=== PATIENT | male | born 1955 | race African-American/Black ===

== ENCOUNTER 2019-02-25 01:41 | Inpatient (IN) | payer OTHER, MEDICAID ==
[~2019-02-25] VITALS: Ht 167.6 cm; Wt 61.2 kg
[2019-02-25] MEDS ORDERED: NITROGLYCERIN0.4 MG SL (02:21)
[2019-02-25] MEDS ORDERED: BRILINTA90 M1 PO (02:23)
[2019-02-25] MEDS ORDERED: LIPITOR80 MG PO (02:28)
[2019-02-25] MEDS ORDERED: CARVEDILOL6.25 MG PO (02:29)
[2019-02-25] MEDS ORDERED: ASPIRIN CHEWABL81 MG PO (02:29)
[2019-02-25] MEDS ORDERED: LEXAPRO10 MG PO (02:30)
[2019-02-25] MEDS ORDERED: REMERON15 M2 PO (02:30)
[2019-02-25 04:00] VITALS: BP 160/90
--- NOTE | 2019-02-25 04:12 | NUR ---
DR ISLAS NOTIFIED OF ADMISSION
--- NOTE | 2019-02-25 04:55 | NUR ---
DR ISLAS ON UNIT TO SEE PT FOR MEDICAL CONSULT
[2019-02-25 04:57] VITALS: BP 160/90
--- NOTE | 2019-02-25 05:12 | NUR ---
BARBARA KAUFMAN a 64 year old M admitted via ambulatory from [facility] as a voluntary admission. Arrived on unit at 0320. ALLERGIES: PCN. Vital signs are: 98.2-84-18 160/90. The client signed the following forms with stated understanding: Authorization For The Release of Medical Information, Clothing List, Consent to Voluntary Admission and Hospitalization, Consent and Release Forms/Receipt of Rights, Acknowledgement of Advance Directive Information, Behavioral Health Consent Form, and Informed Consent of Medications. Admitted under the services of Dr. RENETTA DICKERSON,[facility]. A search was conducted and hazardous articles were removed. Client was oriented to the unit. PT ALERT & ORIENTED X 4. ADMITS TO SUICIDAL THOUGHTS THAT COME & GO WITH NO PLAN. CONTRACTS FOR SAFETY. CO-OPERATIVE WITH ADMISSION. CATHRYN BAUMAN
[2019-02-25 06:20] LABS: BASO % 0.5 % (0.0-1.0); EOS # 0.2 10*3/uL (0.0-0.4); EOS % 2.2 % (1.0-4.0); LYMPH # 1.9 10*3/uL (1.3-4.4); LYMPH % 24.5 % (27.0-41.0); MEAN CELL VOLUME 88.5 fl (80.0-94.0); MEAN CORPUSCULAR HGB 29.5 pg (27.0-31.0); MEAN CORPUSCULAR HGB CONC 33.3 g/dl (33.0-37.0); MEAN PLATELET VOLUME 10.5 fl (9.6-12.3); MONO # 0.7 10*3/uL (0.1-1.0); MONO % 9.1 % (3.0-9.0); NEUT # 4.9 10*3/uL (2.3-7.9); NEUT % 63.4 % (47.0-73.0); PLATELET COUNT AUTOMATED 189 10*3/uL (130-400); RED BLOOD COUNT 4.07 10*6/uL (4.50-5.90); RED CELL DISTRI WIDTH 14.2 % (0-14.5); WHITE BLOOD COUNT 7.8 10*3/uL (4.8-10.8)
[2019-02-25 06:47] LABS: ALBUMIN 3.5 gm/dl (3.1-4.5); ALKALINE PHOSPHATASE 131 U/L (45-117); BUN 15 mg/dl (7-24); CHLORIDE 112 mmol/L (98-107); CHOLESTEROL 151 mg/dL (<200); POTASSIUM 3.7 mmol/L (3.5-5.1); SGOT/AST 44 IU/L (3-35); SGPT/ALT 38 U/L (12-78); SODIUM 141 mmol/L (136-145); TOTAL PROTEIN 7.4 gm/dL (6.4-8.2); TRIGLYCERIDES 119 mg/dl (<150); VLDL CHOLESTEROL 24 mg/dL (6-40)
[2019-02-25 06:53] LABS: HDL CHOLESTEROL 37 mg/dl (40-60); LDL CHOLESTEROL 90 mg/dL (9-159)
[2019-02-25 07:51] VITALS: BP 148/86
--- NOTE | 2019-02-25 08:15 | NUR ---
Treatment Plan meeting was held with Dr. Adams, RN, AT, MASTER RIGGER-S and Heating And Cooling Systems Engineer. Plan for discharge Next week. Discharge Plan unclear at this time. Pt. will require Assessment to determine Discharge Needs.
[2019-02-25 08:21] LABS: VITAMIN D, 25-HYDROXY 13.8 ng/mL (30-100)
[2019-02-25] MEDS ORDERED: TRAMADOL HCL50 MG PO (09:30)
--- NOTE | 2019-02-25 09:31 | NUR ---
MED REC REVIEWED WITH PT. PER PT HE DOES TAKE ALL MEDICATIONS REFLECTED IN THE MED REC. CALL PLACED TO PT'S HOME PHARMACY, [facility] IN [place], PER PHARMACY PT HAS NOT PICKED UP BRILINTA, LIPITOR, COREG OR LEXAPRO. STATES HE HAS PICKED UP REMERON IN SEPTEMBER AND TRAMADOL IN JANUARY. UPDATED.
--- NOTE | 2019-02-25 11:05 | NUR ---
AND ON UNIT TO SEE PT AT THIS TIME.
[2019-02-25] MEDS ORDERED: TIMOLOL MALEATE10 M1 OU (11:14)
--- NOTE | 2019-02-25 11:15 | NUR ---
MADE AWARE PER PT'S PHARMACIES PT HAS NOT HAD ANY MEDICATIONS FILLED SINCE WITH EXCEPTION OF TRAMADOL WHICH WAS FILLED IN JANUARY.
--- NOTE | 2019-02-25 11:42 | NUR ---
AM GROUP AND ASSESSMENT NO AM GROUP WAS CONDUCTED DUE TO NURSING STUDENTS BEING PRESENT. PT ASSESSMENT WAS COMPLETED AND GOALS WERE SET.
--- NOTE | 2019-02-25 15:38 | NUR ---
P- DEPRESSED MOOD, FLAT AFFECT. PT REPORTS CHRONIC PAIN WHICH CONTRIBUTES TO DEPRESSION. POOR SLEEP. PT REPORTS MEDICATION NONCOMPLIANCE WHILE AT HOME. I- ORIENTATION, MOOD AND BEHAVIOR ASSESSED. ASSESSED PT FOR SI/HI, INTENT OR PLAN. ASSESSED PT FOR S/S HALLUCINATIONS, PARANOIA AND/OR DELUSIONS. MEDICATIONS ADMINISTERED PER PHYSICIAN'S ORDERS. ASSISTANCE WITH ADL CARE PROVIDED NEEDED. ENCOURAGED PT TO ATTEND AND PARTICIPATE IN [facility] GROUPS AND ACTIVITIES. R- PT IS ALERT AND ORIENTED X4. MEMORY APPEARS TO BE INTACT. RESPS EASY AND EVEN ON ROOM AIR. MOOD APPEARS DEPRESSED WITH FLAT AFFECT. SPEECH IS WNL AND COHERENT, ABLE TO MAKE NEEDS KNOWN WITHOUT DIFFICULTY. PT REPORTS STRUGGLING WITH CHRONIC PAIN WHICH CONTRIBUTES TO DEPRESSIVE SYMPTOMS. PT REPORTS POOR SLEEP. PT UNSURE OF MEDICATIONS AND ADMITS HE HAS DIFFICULTY WITH COMPLIANCE AT HOME. MEDICATION COMPLIANT THIS AM WITHOUT DIFFICULTY WITH EXCEPTION OF FLU SHOT, PT STATES "I TOLD THEM I DIDN'T WANT THAT". PT DENIES SI/HI, INTENT OR PLAN. VERBALLY CONTRACTS FOR SAFETY. PT DENIES HALLUCINATIONS, NO RESPONSE TO INTERNAL STIMULI NOTED. NO PARANOIA OR DELUSIONS NOTED. PT IS CALM AND COOPERATIVE. INTERACTIVE WITH STAFF AND PEERS. NO DISTRESS NOTED. P- PLAN TO CONTINUE CURRENT TREATMENT, CONTINUE TO MONITOR MOOD AND BEHAVIORS, PROVIDE APPROPRIATE REORIENTATION, REDIRECTION AND 1:1 NEEDED. CONTINUE TO ENCOURAGE MEDICATION COMPLIANCE, PROVIDE MEDICATION EDUCATION AND ENCOURAGE GROUP ATTENDANCE AND PARTICIPATION.
--- NOTE | 2019-02-25 15:46 | NUR ---
PM GROUP/BINGO PT ATTENDED AFTERNOON GROUP THERAPY AND PARTICIPATED BY PLAYING SEVERAL BINGO GAMES. PT WAS LAUGHING AND JOKING AND EXHIBITED NO SIGNS OF DEPRESSION NOR EXPRESSED ANY SUICIDAL IDEATIONS
--- NOTE | 2019-02-25 17:39 | NUR ---
SHIFT CHART CHECK COMPLETED.
[2019-02-25 19:18] VITALS: BP 155/90
--- NOTE | 2019-02-25 21:01 | NUR ---
24 HR chart check completed.
--- NOTE | 2019-02-25 23:18 | NUR ---
MOOD IS PLEASANT. DENIES SUICIDAL FEELINGS & STATED, "I HAVN'T EVEN THOUGHT OF THAT TODAY". ALERT & ORIENTED X 4. COMPLIANT WITH MEDICATIONS. ATE SNACK. AMUBLATES INDEPENDENTLY. DID GO TO THE DINING ROOM & SAT NEAR THE TV & WATCHED IT. STATED ON DELMIS PORTER & STATED, "I REALLY LIKE THIS NEW MEDICINE".
--- NOTE | 2019-02-26 05:07 | NUR ---
PT HAS SLEPT QUIETLY PAST 2300
--- NOTE | 2019-02-26 07:30 | NUR ---
Occupational Therapy evaluation completed on 3 with full eval to follow. Precautions include legally blind,needs supervision and verbal assist for set up in ADLs,low complexity level 47731. Recommend no further OT and d/c to supervised setting where he can receive set up for ADls and assist with IADLs. Thank you. Heide Calvillo OTR/l
--- NOTE | 2019-02-26 07:45 | NUR ---
PHYSICAL THERAPY Attempted to see pt for eval eating breakfast will follow Mellissa Mares PT
--- NOTE | 2019-02-26 08:15 | NUR ---
DR TAYLOR ON UNIT TO ASSESS PT
--- NOTE | 2019-02-26 08:15 | NUR ---
Treatment Plan meeting was held with Dr. Adams, RN, AT, SIGNAL TOWER OPERATOR-S and Forensic Audit Expert in attendance. Plan for discharge next week. Discharge Plan remains unchanged. Call is out to Facility/[facility] where patient was staying prior to admit to the Hospital.
[2019-02-26 08:38] VITALS: BP 146/78
--- NOTE | 2019-02-26 08:47 | NUR ---
Per pt's request, phoned pt's sister Lesley and informed her that pt was admitted to the [facility]. Lesley stated that she will be unable to visit pt while in the [facility] because she lives 1 [place]/2 hrs from [place]. Provided Lesley with [facility] phone number. Phoned [facility] and left a voicemail message for Gabby requesting a return call to check status of pt returning to an apartment through this coalition.
--- NOTE | 2019-02-26 11:41 | NUR ---
AM GROUP/EXERCISE AND BRAIN GAMES PT ATTENDED MORNING GROUP THERAPY AND PARTICIPATED IN ALL ACTIVITIES. PT EXPRESSED NO SUICIDAL IDEATIONS WHILE IN GROUP. PT WAS ANIMATED AND ON TASK
--- NOTE | 2019-02-26 12:43 | NUR ---
Left another voicemail message for Gabby at [facility] requesting a return call to confirm that pt is able to return to his apartment.
--- NOTE | 2019-02-26 13:00 | NUR ---
Faxed inpatient mental health admission clinical to [facility]. Awaiting response.
--- NOTE | 2019-02-26 15:40 | NUR ---
PM GROUP/LEISURE INTERESTS PT DID NOT ATTEND AFTERNOON GROUP THERAPY. PT WAS IN BED NAPPING
--- NOTE | 2019-02-26 18:34 | NUR ---
Patient resting quietly with no c/o discomfort. Respirations easy and regular. Vital signs stable. No overt distress. GIVENS,JENNIFER
[2019-02-26 19:46] VITALS: BP 149/90
--- NOTE | 2019-02-27 05:23 | NUR ---
NO ADVERSE BEHAVIORS NOTED. PT ALERT AND ORIENTED X4. MOOD STABLE. PT CALM, COOPERATIVE AND INTERACTIVE. PT MEDICATION COMPLIANT WITHOUT DIFFICULTY AFTER REVIEW. PT DENIES SI/HI, HALLUCINATIONS, OR PAIN. NO OTHER PHYSICAL COMPLAINTS NOTED. AMBULATORY WITH STEADY GAIT, ABLE TO MAKE NEEDS KNOWN. SLEPT APPROX 7 HOURS THIS SHIFT WITH NO AWAKENINGS. NO SIGNS OR SYMPTOMS OF DISTRESS NOTED. PLAN IS TO MONITOR MOODS AND BEHAVIORS. PROVIDED 1:1 WITH THERAPEUTIC INTERVENTIONS. ENCOURAGE MEDICATION COMPLIANCE AND EDUCATE. MAINTAIN Q 15 MIN CHECKS.
[2019-02-27 08:16] VITALS: BP 138/79
--- NOTE | 2019-02-27 08:21 | NUR ---
CLAUDIA ON UNIT OT ASSESS PT
--- NOTE | 2019-02-27 08:23 | NUR ---
Patient resting quietly with no c/o discomfort. Respirations easy and regular. Vital signs stable. No overt distress. GIVENS,JENNIFER
--- NOTE | 2019-02-27 12:02 | NUR ---
AM GROUP/EXERCISE/MUSIC/GAMES PT ATTENDED AND PARTICIPATED IN ALL ACTIVITY. PT PLEASANT AND ON TASK WITH NO S.I. EXPRESSED AT THIS TIME. PT WILL CONTINUE TO ATTEND AND PARTICIPATE IN FUTURE GROUP SESSIONS.
--- NOTE | 2019-02-27 15:56 | NUR ---
PM GROUP/CRAFTS/MUSIC PT ATTENDED AND PARTICIPATED IN ALL ACTIVITY'S. PT PLEASANT AND ON TASK BUT ALSO SOCIABLE AND SINGING ALONG TO MUSIC. PT EXPRESSED NO S.I. AT THIS TIME AND WILL CONTINUE TO ATTEND AND PARTICIPATE IN FUTURE GROUP SESSIONS.
[2019-02-27 20:03] VITALS: BP 135/80
--- NOTE | 2019-02-28 02:32 | NUR ---
NO ADVERSE BEHAVIORS NOTED. PT ALERT AND ORIENTED X4. MOOD STABLE. PT CALM, COOPERATIVE AND INTERACTIVE. PT MEDICATION COMPLIANT WITHOUT DIFFICULTY AFTER REVIEW. PT DENIES SI/HI, HALLUCINATIONS, OR PAIN. NO OTHER PHYSICAL COMPLAINTS NOTED. AMBULATORY WITH STEADY GAIT, ABLE TO MAKE NEEDS KNOWN. PATIENT IS CURRENTLY LAYING DOWN WITH EYES CLOSED, RESPIRATIONS EASY AND REGULAR, NO SIGNS OR SYMPTOMS OF DISTRESS NOTED. PLAN IS TO MONITOR MOODS AND BEHAVIORS. PROVIDED 1:1 WITH THERAPEUTIC INTERVENTIONS. ENCOURAGE MEDICATION COMPLIANCE AND EDUCATE. MAINTAIN Q 15 MIN CHECKS.
--- NOTE | 2019-02-28 03:44 | NUR ---
24 HOUR CHART CHECK COMPLETED.
--- NOTE | 2019-02-28 05:47 | NUR ---
PATIENT OBSERVED ON Q 15 MIN CHECKS TO HAVE SLEPT THROUGHOUT THE NIGHT WITH X1 BRIEF AWAKENING TO USE THE RESTROOM. NO SIGNS OR SYMPTOMS OF DISTRESS NOTED.
--- NOTE | 2019-02-28 07:56 | NUR ---
Patient resting quietly with no c/o discomfort. Respirations easy and regular. Vital signs stable. No overt distress. GIVENS,JENNIFER
[2019-02-28 08:28] VITALS: BP 137/80
--- NOTE | 2019-02-28 18:48 | NUR ---
ALERT AND ORIENTED X4. STABLE MOOD. INTERACTIVE WITH STAFF AND PEERS. JOKING, LAUGHING, AND SINGING . MEDICATION COMPLIANT. EDUCATED ON MEDICATIONS. VERBALIZED UNDERSTANDING. NO HALLUCINATIONS OR DELUSIONS NOTED. DENIES SI/HI. MONITORED ON Q15 MINUTE SAFETY CHECKS.
[2019-02-28 19:58] VITALS: BP 138/85
--- NOTE | 2019-02-28 20:11 | NUR ---
24 HR chart check completed.
--- NOTE | 2019-02-28 21:45 | NUR ---
MOOD IS STABLE. HAS BEEN SITTING IN THE DINING ROOM WATCHING A FOOTBALL GAME, SOCIALIZING & LAUGHING WITH SELECT PEERS. DENIES FEELING DEPRESSED. DENIES SUICIDAL FEELINGS. ATE SNACK. COMPLIANT WITH MEDICATIONS. AMBULATES INTEPENDENTLY & IS INDEPENDENT WITH TOILETING & HAS BEEN CONTINENT.
--- NOTE | 2019-02-28 21:50 | NUR ---
MOOD IS STABLE. HAS BEEN SITTING IN THE DINING ROOM QUIETLY WATCHING A FOOTBALL GAME. KEEPS TO HIMSELF. DENIES FEELING DEPRESSED. DENIES SUICIDAL FEELINGS. ALERT & ORIENTED X4. STATED THAT HE THINKS HE IS GOING HOME TOMORROW & IS HAPPY ABOUT THAT. ATE SNACK. COMPLIANT WITH MEDICATIONS. AMBULATES INDEPENDENTLY & IS INDEPENDENT WITH TOILETING & HAS BEEN CONTINENT.
--- NOTE | 2019-03-01 05:23 | NUR ---
PT HAS SLEPT PAST 2214 WITH 2 BRIEF AWAKENINGS TO GO TO THE BATHROOM X2.
[2019-03-01 08:00] VITALS: BP 145/59
--- NOTE | 2019-03-01 08:15 | NUR ---
Treatment Plan meeting was held this a.m. with Dr. Adams RN, AT, TERRITORY SALES REPRESENTATIVE-S and Welfare Manager in attendance. Plan for discharge at the end of the week or Beginning of next week. Pt. is from a Homeless Detention assistance Apartment. At this point Plan is for Pt. to return there at discharge.
--- NOTE | 2019-03-01 08:40 | NUR ---
DR. TAYLOR ON UNIT TO ASSESS PT, UPDATE PROVIDED.
--- NOTE | 2019-03-01 10:08 | NUR ---
Received a voicemail message from Gabby pt's spring encaser at [facility] stating that she needed to speak to pt prior to a decision being made about pt returning to his apartment. Met with pt and informed him of this. Brought phone to patient and he did attempt to phone Gabby but she was unavailable. Patient will attempt phone call again later today. Pt was pleasant during interaction.
--- NOTE | 2019-03-01 11:45 | NUR ---
AM GROUP/EXERCISE AND CURRENT EVENTS PT ATTENDED AND PARTICIPATED IN MORNING GROUP THERAPY. PT WAS TALKATIVE BUT ON TASK. PT EXPRESSED NO SUICIDAL IDEATIONS WHILE IN GROUP
--- NOTE | 2019-03-01 11:54 | NUR ---
IP 5 days sabrina per Miranda Hoyos at [employer], NRD 03/02. Auth # [id number]
--- NOTE | 2019-03-01 15:47 | NUR ---
PM GROUP/WREATHS PT ATTENDED AND PARTICIPATED IN AFTERNOON GROUP THERAPY. PT WAS ON TASK AND TALKATIVE. PT EXPRESSED NO SUICIDAL IDEATIONS WHILE IN GROUP
--- NOTE | 2019-03-01 15:48 | NUR ---
NO ADVERSE MOODS OR BEHAVIORS NOTED THIS SHIFT. PT ALERT TO PERSON, PLACE, TIME AND SITUATION. PT REPORTS FEELING GREAT, INTERACTIVE WITH STAFF AND PEERS. PT ISOLATIVE TO ROOM THIS AM STATING HE DID NOT SLEEP WELL LAST NIGHT. PT AMBULATORY THROUGHOUT UNIT, GAIT STEADY. PT CONTINENT OF BOWEL AND BLADDER. NO HALLUCINATIONS OR DELUSIONS NOTED. PT DENIES ANY SUICIDAL THOUGHTS. PLAN IS TO MONITOR PT BEHAVIORS ON Q15 MIN SAFETY CHECKS, ENCOURAGE MED COMPLIANCE AND PROVIDE MED EDUCATION, PROVIDE EMOTIONAL SUPPORT AND 1:1 FOR PT TO VOICE FEELINGS.
[2019-03-01 19:41] VITALS: BP 147/85
--- NOTE | 2019-03-01 19:42 | NUR ---
24 HR chart check completed.
--- NOTE | 2019-03-01 20:49 | NUR ---
EVENING/MUSIC/GAME/CRAFTS PT ATTENDED AND PARTICIPATED IN ALL GROUP ACTIVITY. PT PLEASANT AND JOKING AND LAUGHING WITH PEERS. PT EXPRESSED NO S.I. AT THIS TIME AND WILL CONTINUE TO ATTEND AN DPARTICIPATE IN FUTURE GROUP SESSIONS.
--- NOTE | 2019-03-01 20:59 | NUR ---
MOOD IS STABLE. ALERT & ORIENTED X 4. HAS BEEN SITTING IN THE DINING ROOM PARTICIPATING IN RECREATIONAL THERAPY SOCIALIZING, JOKING & LAUGHING WITH SELECT PEERS. DENIES FEELING DEPRESSED. DENIES SUICIDAL FEELINGS. ATE SNACK. COMPLIANT WITH MEDICATIONS. AMBULATES INTEPENDENTLY & IS INDEPENDENT WITH TOILETING.
--- NOTE | 2019-03-02 05:29 | NUR ---
SLEPT PAST 2114
[2019-03-02 07:43] VITALS: BP 131/51
--- NOTE | 2019-03-02 08:15 | NUR ---
Treatment Plan meeting was held with Nurse Practitioner, RN, AT, CRISTHIAN and Drafter Apprentice in attendance. Plan for discharge Friday with return to his Apartment.
--- NOTE | 2019-03-02 08:20 | NUR ---
MONTY AVENDANO ON UNIT TO SEE PATIENT
--- NOTE | 2019-03-02 11:40 | NUR ---
AM GROUP PT DID NOT ATTEND MORNING GROUP THERAPY. PT WAS IN BED NAPPING
--- NOTE | 2019-03-02 12:26 | NUR ---
PATIENT ALERT AND ORIENTED. PATIENT WITH NO NO RESPIRATORY DISTRESS. PATIENT WITH NO SUICIDAL OR HOMICIDAL IDEATIONS. PATIENT WITH NO HALLUCINATIONS OR DELUSIONS. PATIENT LEGALLY BLIND. PATIENT MEDICATION COMPLIANT. PATIENT AMBULATING ON UNIT WITHOUT ASSISTIVE DEVICE. PATIENT STIFF WHILE AMBULATING. PATIENT INTERACTING WITH PEERS IN DINING AREA. PATIENT WITH GOOD APPETITE. Q 15 MINUTE CHECKS MAINTAINED. SEE [facility] FLOW SHEET FOR SPECIFIC MONITORING
--- NOTE | 2019-03-02 14:23 | NUR ---
Spoke with Gabby, pt's pillowcase cleaner at [facility], who stated that she needs to make sure that pt can live independently should he return to the apartment that is being provided [facility]. Gabby requested documentation of pt's current status to assist in making this determination. Met with pt after speaking to Gabby, pt stated that he is confident that he can return to the apartment. Shared with pt the concerns that Gabby expressed. Pt dismissed the concerns and again stated that he can return to the apartment.
--- NOTE | 2019-03-02 14:31 | NUR ---
Received a call from Kiley, pt's skilled nursing case manager through the [facility] ([phone]) who stated that she had been discussing with pt the possibility of pt residing assisted in a NF. Kiley stated that pt had voiced that he wanted this. Informed Kiley that pt had not mentioned this to this underwriter and that the discharge plan is for pt to return to the apartment sponsored by the homeless coalition. Kiley stated that she wants pt to be successful and that home PT/OT could be provided in the apartment if needed.
--- NOTE | 2019-03-02 14:39 | NUR ---
Faxed continued review stay clinical to [facility]. Awaiting response.
--- NOTE | 2019-03-02 14:49 | NUR ---
PHYSICAL THERAPY Attempted to see pt for evaluation sleeping in bed, awakened and discussed PT intervention/evaluation. Pt declining at this time states he "just laid down and he is having increased LBP" today. Discussed speaking with nurse for pain meds and doing therapy, but per pt wanting to "just rest" presently. Will follow Mellissa Mares PT
--- NOTE | 2019-03-02 16:07 | NUR ---
Spoke with Antoinette Cerna at [facility]. Pt. is connected but they are unable to bill his Medicare. Provided with Information for Follow Up appointment for Mental Health Follow up.
--- NOTE | 2019-03-02 16:11 | NUR ---
Spoke with Varsha at [facility]. Requested faxed information from Pt. referral from [facility] for review. Faxed to [phone].
--- NOTE | 2019-03-02 19:53 | NUR ---
24 HR chart check completed.
[2019-03-02 20:00] VITALS: BP 121/55
--- NOTE | 2019-03-02 21:18 | NUR ---
MOOD IS STABLE. ALERT & ORIENTED X 4. HAS BEEN SITTING IN THE DINING ROOM SOCIALIZING WATCHING TV. DENIES FEELING DEPRESSED. DENIES SUICIDAL FEELINGS. STATED THAT HE IS DOING, "GREAT. JUST GREAT". ATE SNACK. COMPLIANT WITH MEDICATIONS. AMBULATES INTEPENDENTLY & IS INDEPENDENT WITH TOILETING.
--- NOTE | 2019-03-03 06:06 | NUR ---
PT HAS SLEPT PAST 2229
[2019-03-03 07:28] VITALS: BP 126/61
--- NOTE | 2019-03-03 08:50 | NUR ---
MONTY WILLSON PAPER FINAL INSPECTOR ON UNIT TO ASSESS PT, UPDATE PROVIDED.
--- NOTE | 2019-03-03 08:54 | NUR ---
MONTY WILLSON CNP ON UNIT TO ASSESS PATIENT.
--- NOTE | 2019-03-03 09:00 | NUR ---
LCD 03/04, NRD 03/05 per [facility], Auth # [id number]
--- NOTE | 2019-03-03 10:04 | NUR ---
Treatment Plan meeting was held this a.m. with Dr. Adams RN, AT, CHEMICAL PLANT TECHNICAL DIRECTOR-S and Cycle Counter in attendance. Plan for discharge /Friday. Discharge Plan is unclear at this time concerning return to [facility].
--- NOTE | 2019-03-03 11:42 | NUR ---
AM GROUP PT ATTENDED MORNING GROUP THERAPY AND PARTICIPATED IN THE GROUP DISCUSSION. PT WAS ENGAGED AND ABLE TO OFFER [employer] INS[employer]S TO PEER INPUT. PT EXPRESSED NO SUICIDAL IDEATIONS WHILE IN GROUP.
--- NOTE | 2019-03-03 11:42 | NUR ---
PT C/O UPSET STOMACH AND INDIGESTION. PT MEDICATED WITH MAALOX PER PRN ORDERS.
--- NOTE | 2019-03-03 12:11 | NUR ---
PT C/O CONSTIPATION STATED " I HAVENT HAD A POOP IN A FEW DAYS." PT MEDICATED WITH MILK OF MAG PER PRN ORDERS WILL CONTINUE TO MONITOR.
--- NOTE | 2019-03-03 12:15 | NUR ---
NO ADVERSE MOODS OR BEHAVIORS NOTED THIS SHIFT. PT ALERT TO PERSON, PLACE, TIME AND SITUATION. PT CALM, MOOD IS STABLE. PT MED COMPLIANT WITHOUT DIFFICULTY, MED EDUCATION PROVIDED. NO HALLUCINATIONS OR DELUSIONS NOTED. PT DENIES ANY SUICIDAL THOUGHTS OR BEHAVIORS. PT GOAL DIRECTED TOWARDS DISCHARGE. PT AMBULATORY THROUGH UNIT, GAIT STEADY. PT CONTINENT OF BOWEL AND BLADDER. PLAN IS TO MONITOR PT BEAHVIORS ON Q15 MIN SAFETY CHECKS, ENCOURAGE MED COMPLIANCE AND PROVIDE MED EDUCATION, PROVIDE EMOTIONAL SUPPORT AND 1:1 FOR PT TO VOICE FEELINGS.
--- NOTE | 2019-03-03 13:54 | NUR ---
PHYSICAL THERAPY Attempted to see pt for evaluation this afternoon lying in bed c/o abdominal pain states he has been constipated, does not want to get up at this point states he has been walking in hallways, per staff notes pt has been amb in hallways with steady gait. Will follow attempt to see in the AM if cont to decline therapy will discontinue order, thank you. Mellissa Mares PT
--- NOTE | 2019-03-03 15:14 | NUR ---
SPOKE WITH MONTY WILLSON CNP AND ADVISED THAT PT IS BEING DISCHARGED TOMORROW AT 0945 IF SHE COULD COMPLETE HIS MEDICAL MEDS TODAY, PER MONTY SHE WILL TAKE CARE OF IT. NO FURTHER ORDERS AT THIS TIME.
--- NOTE | 2019-03-03 15:40 | NUR ---
PM GROUP/CARDS PT DID NOT ATTEND AFTERNOON GROUP THERAPY. PT WAS IN BED NAPPING
--- NOTE | 2019-03-03 17:30 | NUR ---
SHIFT CHART CHECK COMPLETED
[2019-03-03 19:51] VITALS: BP 131/65
--- NOTE | 2019-03-03 21:24 | NUR ---
Patient alert to person,place,time and situation. No memory deficits noted. Patient denies suicidal thoughts at this time. Patient compliant with HS medications without any difficulty. Provided 1:1 for therapeutic communication and emotional support. Patient ambulating in hallway with steady gait. Plan to continue to encourage medication compliance. Also continue to provide emotional support and therapeutic communication. Q 15 minute safety checks continued and maintained. See [facility] flowsheet for further documentation.
--- NOTE | 2019-03-04 00:09 | NUR ---
24 HR chart check completed.
--- NOTE | 2019-03-04 05:09 | NUR ---
Patient slept approx. 8 hours throughout shift with no awakings. Q 15 minute safety checks continued and maintained.
--- NOTE | 2019-03-04 07:21 | NUR ---
SPOKE WITH DR JACKSON RE: PT DISCHARGE FOR THIS AM, PER DR. JACKSON GO AHEAD AND CALL PRESCRIPTIONS INTO PT PHARMACY. NO FURTHER ORDERS AT THIS TIME
[2019-03-04] MEDS ORDERED: VISTARIL50 MG PO (07:22)
[2019-03-04] MEDS ORDERED: CYMBALTA30 MG PO (07:22)
[2019-03-04] MEDS ORDERED: CYMBALTA60 MG PO (07:22)
[2019-03-04] MEDS ORDERED: B121000 MCG/1 IM (07:23)
[2019-03-04 08:00] VITALS: BP 119/62
[2019-03-04 08:14] VITALS: BP 119/62
--- NOTE | 2019-03-04 08:19 | NUR ---
PRESCRIPTIONS CALLED IN TO ISIAH PHARMACIST AT [facility] [phone] PER DR. MCMULLEN ORDERS.
--- NOTE | 2019-03-04 08:28 | NUR ---
PT ALERT TO PERSON, PLACE, TIME AND SITUATION. PT MED COMPLIANT WITHOUT DIFFICULTY, MED EDUCATION PROVIDED. PT CALM, MOOD IS STABLE. PT PLEASANT AND COOPERATIVE WITH STAFF AND PEERS. PT DENIES ANY SUICIDAL/HOMICIDAL THOUGHTS. NO HALLUCINATIONS OR DELUSIONS NOTED. PT AMBULATORY THROUGHOUT UNIT, GAIT STEADY. PT CONTINENT OF BOWEL AND BLADDER. SKIN INTACT, NO WOUNDS OR OPEN AREAS NOTED. DISCHARGE PAPERWORK REVIEWED WITH PT. PLAN IS TO MONITOR PT BEHAVIORS ON Q15 MIN SAFETY CHECKS, ENCOURAGE MED COMPLIANCE, PROVIDE MED EDUCATION AND PREPARE PT FOR DISCHARGE.
--- NOTE | 2019-03-04 08:50 | NUR ---
PT DISCHARGED OFF THE UNIT VIA WHEELCHAIR, TRANSPORT BY [place] [employer]ICA[employer] TRANSPORT[facility] PT BELONGINGS AND DISCHARGE PAPERWORK SENT WITH PT.
--- NOTE | 2019-03-04 09:56 | NUR ---
DR NOLAND ON UNIT TO SEE PATIENT
--- NOTE | 2019-03-04 10:25 | NUR ---
Treatment team meeting held with Dr Adams, RN, and CRISTHIAN. Patient is discharging today to housing through the [facility] with community mental health follow-up.
--- NOTE | 2019-03-04 10:40 | NUR ---
PT DISCHARGED TO [facility] VIA [place] [facility]ICA[facility] TRANSPORT[facility]. PT ESCORTED OFF THE UNIT VIA WHEELCHAIR ESCORTED BY STAFF. PT DC PAPERWORK AND BELONGINGS SENT WITH PT.
--- NOTE | 2019-03-04 10:52 | NUR ---
Patient is discharging today to housing through the [facility]. Follow-up will be at [facility] where pt must first be a walk-in client until established. Hours for walk-in given to pt. Pt will also follow-up at the [facility] but this appointment will be scheduled by pt's manager case management at the [facility]. Pt denies suicidal ideations. He displays a full affect and is engaging with staff and peers prior to discharge. Pt would isolate at times but also would participate in programming.
== END 2019-03-04 10:37 | disposition home or self-care (01) | DRG 885 ==
LOC: 3N 01:41
PROVIDERS: ADMIT Psychiatry & Neurology Psychiatry
DX: F33.2 Major depressive disorder, recurrent severe without psychotic features (principal); R45.851 Suicidal ideations; G45.9 Transient cerebral ischemic attack, unspecified; I10 Essential (primary) hypertension; F34.1 Dysthymic disorder; F14.10 Cocaine abuse, uncomplicated; M19.90 Unspecified osteoarthritis, unspecified site; I25.10 Atherosclerotic heart disease of native coronary artery without angina pectoris; F17.210 Nicotine dependence, cigarettes, uncomplicated; I73.9 Peripheral vascular disease, unspecified; H54.8 Legal blindness, as defined in USA; E87.8 Other disorders of electrolyte and fluid balance, not elsewhere classified; R74.0 Nonspecific elevation of levels of transaminase and lactic acid dehydrogenase [LDH]; E55.9 Vitamin D deficiency, unspecified; Z88.0 Allergy status to penicillin; Z86.73 Personal history of transient ischemic attack (TIA), and cerebral infarction without residual deficits; Z98.62 Peripheral vascular angioplasty status; Z79.82 Long term (current) use of aspirin; Z79.899 Other long term (current) drug therapy